=== PATIENT | male | born 1940 | race Caucasian/White ===

== ENCOUNTER → 2016-07-22 | Outpatient (REF) | payer MEDICARE ==
[~2016-07-22] MED LIST: ALPHAGAN; ASPI81CH PO; BRIN1OPH OU; CARV12.5; CARV12.5 PO; CARV6.25 PO; COMB0.2S OU; COUM1TAB17 PO; COUM2.5T17 PO; DIGO0.12 PO; FERR325T3 PO; FISH100049 PO; HUMA100I5 SUBQ; INSUDET SC; INSUHUMDS SC; IRON18TA2 PO; LIPI20TA PO; PARO40TA2 PO; PRED10TA2; PRED10TA2 PO; PROAAER10 INH; XALA0.007 OU
[2016-07-22 17:16] LABS: INR 2.47
[2016-07-22 17:21] LABS: BASO % 0.4 % (0.0-1.0); EOS # 0.1 K/mm3 (0.0-0.50); EOS % 0.6 % (0.0-3.0); LARGE UNSTAINED CELL # 0.2 K/mm3 (0.0-0.4); LARGE UNSTAINED CELL % 1.7 % (0.0-4.0); LYMPH # 0.7 K/mm3 (1.5-4.5); LYMPH % 7.9 % (24.0-44.0); MEAN CORPUSCULAR HEMOGLOBIN 31.3 pg (27.0-33.0); MEAN CORPUSCULAR HGB CONC 33.2 g/dl (32.0-36.5); MEAN CORPUSCULAR VOLUME 94.2 fl (80.0-96.0); MONO # 0.6 K/mm3 (0.0-0.8); MONO % 6.6 % (0.0-5.0); NEUTROPHILS # 7.3 K/mm3 (1.8-7.7); NEUTROPHILS % 82.7 % (36.0-66.0); PLATELET COUNT, AUTOMATED 182 k/mm3 (150-450); RED CELL DISTRIBUTION WIDTH 13.9 % (11.5-14.5); WHITE BLOOD COUNT 8.8 K/mm3 (4.0-10.0)
[2016-07-22 18:15] LABS: ANION GAP 7 MEQ/L (8-16); BLOOD UREA NITROGEN 21 MG/DL (7-18); CALCIUM LEVEL 8.4 MG/DL (8.8-10.2); CARBON DIOXIDE LEVEL 29 MEQ/L (21-32); CHLORIDE LEVEL 99 MEQ/L (98-107); CHOLESTEROL LEVEL 73 MG/DL (<200); CREATININE FOR GFR 1.35 MG/DL (0.70-1.30); GLOMERULAR FILTRATION RATE 54.7 (>42); GLUCOSE, FASTING 185 MG/DL (83-110); POTASSIUM SERUM 4.1 MEQ/L (3.5-5.1); SODIUM LEVEL 135 MEQ/L (136-145); TRIGLYCERIDES LEVEL 85 MG/DL (<150)
[2016-07-22 18:47] LABS: VITAMIN B12 LEVEL 271 PG/ML (247-911)
[2016-07-22 18:48] LABS: FOLATE > 24.0 NG/ML (>5.4)
== END ==
LOC: M SFHCCLAY 10:20
PROVIDERS: ATTEND Family Medicine
DX: D64.9 Anemia, unspecified (principal); E11.9 Type 2 diabetes mellitus without complications; I48.91 Unspecified atrial fibrillation; Z51.81 Encounter for therapeutic drug level monitoring; Z79.01 Long term (current) use of anticoagulants
CPT/HCPCS: 80048; 80061; 82607; 82746; 83036; 83540; 85025; 85610; G0463

== ENCOUNTER → 2016-08-02 | Outpatient (REF) | payer MEDICARE ==
[~2016-08-02] MED LIST changes: -CARV6.25 PO; +COUM2.5T11 PO; -COUM2.5T17 PO; +PRED10TA; +PRED10TA PO; -PRED10TA2; -PRED10TA2 PO; +PROA1AER INH; -PROAAER10 INH; +XALA0.002 OU; -XALA0.007 OU
[2016-08-02 18:33] LABS: INR 1.76
== END ==
LOC: M LABDRAWC 16:23
PROVIDERS: ATTEND Internal Medicine Cardiovascular Disease
DX: I48.0 Paroxysmal atrial fibrillation (principal)

== ENCOUNTER 2016-08-04 13:07 | Emergency (ER) | payer MEDICARE ==
[~2016-08-04] VITALS: Ht 180.3 cm; Wt 88.4 kg
[2016-08-04] MEDS ORDERED: LIPI20TA PO (13:36)
[2016-08-04] MEDS ORDERED: CARV12.5 (13:36)
[2016-08-04] MEDS ORDERED: COUM1TAB17 PO (13:36)
[2016-08-04] MEDS ORDERED: DIGO0.12 PO (13:36)
[2016-08-04] MEDS ORDERED: ALPHAGAN (13:36)
[2016-08-04] MEDS ORDERED: HUMA100I5 SUBQ (13:36)
[2016-08-04] MEDS ORDERED: PRED10TA2 (13:36)
[2016-08-04] MEDS ORDERED: COUM2.5T17 PO (13:36)
[2016-08-04] MEDS ORDERED: ASPI81CH PO (13:36)
[2016-08-04] MEDS ORDERED: PARO40TA2 PO (13:36)
[2016-08-04] MEDS ORDERED: XALA0.007 OU (13:36)
[2016-08-04] MEDS ORDERED: IRON18TA2 PO (13:37)
[2016-08-04 15:11] LABS: REASON FOR REVIEW COMPREHENSIVE REVIEW
[2016-08-04 15:13] LABS: LYMPH % 4.8 % (24.0-44.0); MEAN CORPUSCULAR HGB CONC 33.3 g/dl (32.0-36.5); MEAN CORPUSCULAR VOLUME 92.9 fl (80.0-96.0); NEUTROPHILS % 90.5 % (36.0-66.0); PLATELET COUNT, AUTOMATED 186 k/mm3 (150-450); RED CELL DISTRIBUTION WIDTH 14.7 % (11.5-14.5); WHITE BLOOD COUNT 13.3 K/mm3 (4.0-10.0)
[2016-08-04 15:14] LABS: INR 1.44; RETIC HEMOGLOBIN CONTENT CHr 34.2 PG (24-36); RETICULOCYTE ABSOLUTE ADVIA212 131 x10(9)/L (17-77)
[2016-08-04 15:15] LABS: BASO % 0.1 % (0.0-1.0); EOS % 0.1 % (0.0-3.0); LARGE UNSTAINED CELL # 0.1 K/mm3 (0.0-0.4); LARGE UNSTAINED CELL % 0.9 % (0.0-4.0); LYMPH # 0.6 K/mm3 (1.5-4.5); MONO # 0.5 K/mm3 (0.0-0.8); MONO % 3.7 % (0.0-5.0); NEUTROPHILS # 12.1 K/mm3 (1.8-7.7)
[2016-08-04 15:16] LABS: ADD MANUAL DIFFER NO; DIFF SLIDE NUMBER 227
--- NOTE | 2016-08-04 15:31 | REP ---
CT of the brain without IV contrast: There are no comparisons. There is no hemorrhage, edema, mass effect or midline shift. The cortical stripe is unremarkable. The ventricles and sulci are enlarged compatible with diffuse volume loss. Impression: There is no hemorrhage, acute infarct or mass. There is diffuse volume loss. Signed by Beto Carter MD 08/04/2016 03:22 P
--- NOTE | 2016-08-04 15:32 | REP ---
PA and lateral chest: Comparison is 08/26/2008. There is chronic mild cardiomegaly and sternotomy wires, unchanged. There is a stable tiny nodule in the right upper lobe, unchanged, likely a granuloma. There are no infiltrates or effusions. The fernanda, mediastinum, and bony thorax are unremarkable. Impression: There are chronic stable findings. There are no new or acute cardiopulmonary findings Signed by Beto Carter MD 08/04/2016 03:24 P
[2016-08-04 15:46] LABS: ALBUMIN 3.3 GM/DL (3.2-5.2); ALKALINE PHOSPHATASE 79 U/L (45-117); ALT/SGPT 39 U/L (12-78); ANION GAP 6 MEQ/L (8-16); AST/SGOT 23 U/L (15-37); BILIRUBIN,DIRECT 0.4 MG/DL (0.0-0.2); BILIRUBIN,TOTAL 1.9 MG/DL (0.2-1.0); BLOOD UREA NITROGEN 43 MG/DL (7-18); CALCIUM LEVEL 8.9 MG/DL (8.8-10.2); CARBON DIOXIDE LEVEL 30 MEQ/L (21-32); CHLORIDE LEVEL 97 MEQ/L (98-107); CREATININE FOR GFR 1.49 MG/DL (0.70-1.30); GLOMERULAR FILTRATION RATE 48.8 (>42); GLUCOSE, FASTING 195 MG/DL (83-110); MAGNESIUM LEVEL 2.2 MG/DL (1.8-2.4); POTASSIUM SERUM 4.3 MEQ/L (3.5-5.1); SODIUM LEVEL 133 MEQ/L (136-145); THYROXINE (T4) 7.3 UG/DL (4.5-12.0); TOTAL PROTEIN 6.6 GM/DL (6.4-8.2)
[2016-08-04 15:57] LABS: T UPTAKE 41 % (33-40)
[2016-08-04 16:25] VITALS: BP 173/81
--- NOTE | 2016-08-05 07:33 | ECGEPIP ---
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
[2016-08-05] MEDS ORDERED: CARV12.5 PO (15:05)
[2016-08-05] MEDS ORDERED: INSUHUMDS SC (15:08)
[2016-08-05] MEDS ORDERED: FERR325T3 PO (15:08)
[2016-08-05] MEDS ORDERED: PRED10TA2 PO (15:17)
[2016-08-05] MEDS ORDERED: FISH100049 PO (15:19)
[2016-08-05] MEDS ORDERED: INSUDET SC (15:23)
[2016-08-05] MEDS ORDERED: BRIN1OPH OU (15:23)
[2016-08-05] MEDS ORDERED: COMB0.2S OU (15:26)
[2016-08-05] MEDS ORDERED: PROAAER10 INH (15:30)
== END 2016-08-04 16:37 | disposition home or self-care (01) ==
LOC: M ED 15:47
DX: R42 Dizziness and giddiness (principal); I11.0 Hypertensive heart disease with heart failure; I48.91 Unspecified atrial fibrillation; E78.00 Pure hypercholesterolemia, unspecified; Z95.1 Presence of aortocoronary bypass graft; Z79.4 Long term (current) use of insulin; Z79.82 Long term (current) use of aspirin; Z79.01 Long term (current) use of anticoagulants; Z79.899 Other long term (current) drug therapy; Z86.79 Personal history of other diseases of the circulatory system

== ENCOUNTER 2016-08-05 12:38 | Observation (INO) | payer MEDICARE ==
[~2016-08-05] VITALS: Ht 185.4 cm; Wt 86.5 kg
[~2016-08-05 12:38] MED LIST changes: -BRIN1OPH OU; -CARV12.5 PO; -COMB0.2S OU; -COUM2.5T11 PO; +COUM2.5T17 PO; -FERR325T3 PO; -FISH100049 PO; -INSUDET SC; -INSUHUMDS SC; -PRED10TA; -PRED10TA PO; +PRED10TA2; -PROA1AER INH; -XALA0.002 OU; +XALA0.007 OU
[2016-08-05] MEDS ORDERED: NS 500 ML IV ONE (14:15)
[2016-08-05 14:25] LABS: IONIZED CALCIUM 4.8 MG/DL (4.5-5.3)
[2016-08-05 14:43] LABS: EOS % 0.3 % (0.0-3.0); LARGE UNSTAINED CELL # 0.1 K/mm3 (0.0-0.4); LARGE UNSTAINED CELL % 0.5 % (0.0-4.0); LYMPH # 0.5 K/mm3 (1.5-4.5); MEAN CORPUSCULAR HEMOGLOBIN 31.5 pg (27.0-33.0); MEAN CORPUSCULAR HGB CONC 33.9 g/dl (32.0-36.5); MEAN CORPUSCULAR VOLUME 92.8 fl (80.0-96.0); MONO # 0.3 K/mm3 (0.0-0.8); MONO % 2.7 % (0.0-5.0); NEUTROPHILS # 10.5 K/mm3 (1.8-7.7); NEUTROPHILS % 92.5 % (36.0-66.0); PLATELET COUNT, AUTOMATED 162 k/mm3 (150-450); WHITE BLOOD COUNT 11.3 K/mm3 (4.0-10.0)
[2016-08-05 14:47] LABS: INR 1.48
[2016-08-05 15:02] LABS: ANION GAP 7 MEQ/L (8-16); BLOOD UREA NITROGEN 46 MG/DL (7-18); CALCIUM LEVEL 9.2 MG/DL (8.8-10.2); CARBON DIOXIDE LEVEL 30 MEQ/L (21-32); CHLORIDE LEVEL 97 MEQ/L (98-107); CREATININE FOR GFR 1.49 MG/DL (0.70-1.30); DIGOXIN LEVEL 1.1 NG/ML (0.5-2.0); GLOMERULAR FILTRATION RATE 48.8 (>42); GLUCOSE, FASTING 228 MG/DL (83-110); MYOGLOBIN 70 NG/ML (16-116); PHOSPHORUS LEVEL 3.2 MG/DL (2.5-4.9); POTASSIUM SERUM 4.6 MEQ/L (3.5-5.1); SODIUM LEVEL 134 MEQ/L (136-145); T UPTAKE 38 % (33-40); THYROXINE (T4) 8.8 UG/DL (4.5-12.0)
[2016-08-05] MEDS ORDERED: CARV12.5 PO (15:05)
[2016-08-05] MEDS ORDERED: FERR325T3 PO (15:08)
[2016-08-05] MEDS ORDERED: INSUHUMDS SC (15:08)
[2016-08-05 15:14] LABS: ERYTHROCYTE SEDIMENTATION RATE 17 mm/hr (0-20)
[2016-08-05] MEDS ORDERED: PRED10TA2 PO (15:17)
[2016-08-05] MEDS ORDERED: FISH100049 PO (15:19)
[2016-08-05] MEDS ORDERED: INSUDET SC (15:23)
[2016-08-05] MEDS ORDERED: BRIN1OPH OU (15:23)
[2016-08-05] MEDS ORDERED: COMB0.2S OU (15:26)
[2016-08-05] MEDS ORDERED: PROAAER10 INH (15:30)
[2016-08-05] MEDS ORDERED: GLUCAGON FOR INJ 1 MG VIAL (J1610) SC PRN (18:00)
[2016-08-05] MEDS ORDERED: DEXTROSE 50% 50 ML SYRINGE IV PRN (18:00)
[2016-08-05] MEDS ORDERED: ALBUTEROL 90 MCG/ACT 8GM HFA INHALER INH PRN (18:00)
[2016-08-05] MEDS ORDERED: IPRATROPIUM 0.5MG/ALBUTEROL 2.5MG INH SOL UD 3ML (DUONEB)(J7620) NEB PRN (18:00)
[2016-08-05 20:42] VITALS: BP 190/81
[2016-08-05] MEDS: BRINZOLAMIDE 1 % OPHTH SUSP (AZOPT) 10ML OU SCH (21:55)
[2016-08-05] MEDS: LATANOPROST 0.005% OPHTH SOLN 2.5 ML OU SCH (21:55)
[2016-08-05] MEDS: HumaLOG INSULIN (NovoLOG) PER UNIT SC SCH (21:56)
[2016-08-05] MEDS: CARVedilol 12.5 MG TAB PO SCH (21:58)
[2016-08-05] MEDS: IPRATROPIUM 0.5MG/ALBUTEROL 2.5MG INH SOL UD 3ML (DUONEB)(J7620) NEB SCH (23:31)
[2016-08-05 23:59] VITALS: BP 170/79
[2016-08-06] VITALS (8 sets, daily range): BP systolic 66–157; BP diastolic 44–86
[2016-08-06] MEDS: IPRATROPIUM 0.5MG/ALBUTEROL 2.5MG INH SOL UD 3ML (DUONEB)(J7620) NEB SCH ×4 (01:45→19:38)
--- NOTE | 2016-08-06 05:26 | HPE ---
DATE OF ADMISSION: 08/05/2016 PRIMARY CARE PROVIDER: Hector Jimenez DO. CHIEF COMPLAINT: Fall, intermittent catatonic muscle weakness. HISTORY OF PRESENT ILLNESS: The patient is a 75-year-old male with the current history starting few months ago. He reports intermittent generalized weakness to the point of catatonia, loss of muscle tone, results to a fall usually from a standing position. Patient has sustained several traumas as a result including head trauma. After each fall, he is not able to get up right away, so has to spend 5-10 minutes before regaining some of his strength. Sometimes he is assisted up by family. He has been worked up without any significant findings. He states a month ago he had an unremarkable MRI and also had an echocardiogram within the year, which was normal as well. A day prior to this presentation, he experienced the symptoms again and fell. He had a discussion with Dr. Cannon, his mainframe developer, who persuaded him to come in and be evaluated again. He said the third time for the same issues. He is really concerned. In the emergency department (ED), his vital signs were positive for orthostasis significantly and patient reports forehead feeling fuzzy. He appears quite irritable. REVIEW OF SYSTEMS: 10-point systems were assessed and negative except listed above in history of present illness (HPI). PAST MEDICAL HISTORY: Includes: 1. Atrial fibrillation on Coumadin. 2. Coronary artery disease. 3. Diabetes, uncontrolled. 4. Hypertension. 5. Depression. 6. Abdominal aortic aneurysm (AAA). 7. Glaucoma. PAST SURGICAL HISTORY: Includes: 1. 3-vessel coronary artery bypass graft (CABG) 1989. 2. AAA repair in 1999. 3. Colonoscopy 2000. 4. Cataracts replacement 2013. FAMILY HISTORY: Father at age of 64 from liver failure. He was an alcoholic. Mother at 62 from liver failure, also alcoholism. He has siblings, one with diabetes and hypertension, a sister who from lung cancer. SOCIAL HISTORY: Patient is an ex-smoker. He quit in 1989. Prior to that, he smoked a pack and a half for 45 years. He is retired, worked at [employer] for 30 years and then [employer] for 20 years. He is and has three children. ALLERGIES TO MEDICATIONS: None listed. LIST OF HOME MEDICATIONS: - atorvastatin 20 mg at nighttime - fish oil one capsule daily - insulin lispro sliding scale - warfarin 2.5 mg by mouth four times a week and then 5 mg three times a week - Combigan eye drop one drop to both eyes twice a day - albuterol - baby aspirin - brinzolamide 200 of 100 mL solution one drop to both eyes three times a day - carvedilol 12.5 mg by mouth twice a day - digoxin 0.125 mg daily - iron sulfate 325 mg by mouth daily - Levemir insulin 20 units once a day - Xalatan 0.005% solution eye drop at night - paroxetine 40 mg once a day - prednisone 10 mg by mouth taper PHYSICAL EXAMINATION: VITAL SIGNS: Blood pressure 144/63, pulse 74, respiratory rate 16, oxygen saturation 95% on room air, temperature 98.6 degrees Fahrenheit. GENERAL: He is alert, oriented to person, place, time and circumstance in no distress. HEENT: Pupils are equal, round and reactive to light. Extraocular muscles are intact. Anicteric sclerae. Mucous membranes are moist. CARDIOVASCULAR SYSTEM: S1, S2 present. Rate is irregular. RESPIRATORY SYSTEM: Lungs are clear to auscultation bilaterally. GASTROINTESTINAL: Abdomen is soft, nontender, nondistended. Bowel sounds are normal. No guarding or rebound. MUSCULOSKELETAL SYSTEM: No edema, cyanosis or calf tenderness. SKIN: Warm, dry, acyanotic without rash. NEUROLOGY: Nonfocal findings. LABORATORIES: Hematology: White blood cell count 11, hemoglobin 12, hematocrit 35, platelets 162. Coagulation: INR 1.48. Chemistry: Sodium 134, potassium 4.6, chloride 97, bicarbonate 30, anion gap 7, BUN 46, creatinine 1.5, fasting glucose 228, lactic acid 2.0, calcium 9.2, phosphorus 3.2. CK 27. Cardiac enzymes normal. TSH normal. Thyroid function tests normal. C-reactive protein normal. Toxicology: Digoxin 1.1. Immunology: Acetylcholine receptor weston antibody is pending. Fingerstick 385. IMAGING STUDIES: CT scan of the head unremarkable. Chest x-ray also no acute cardiopulmonary disease. EKG atrial fibrillation at 67 beats per minute. IMPRESSION: Includes: 1. Orthostatic hypotension. 2. Near syncope. 3. Generalized weakness, suspected myasthenia gravis. 4. History of hypertension. Blood pressure controlled. 5. History of diabetes, uncontrolled. 6. History of depression, stable. 7. History of atrial fibrillation on Coumadin. Heart rate is stable. 8. History of coronary artery disease (CAD), stable. PLAN: Patient is admitted to progressive care unit (PCU). Will be monitored closely on telemetry. Resumed his necessary home medications. Consulted his mainframe developer, Dr. Cannon and neurology, Dr. Smith. They will be seeing him tomorrow. Deep venous thrombosis (DVT) prophylaxis: Will continue patient's Coumadin; however, will be bridging with Lovenox.
--- NOTE | 2016-08-06 07:22 | ECGEPIP ---
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
[2016-08-06] MEDS: HumaLOG INSULIN (NovoLOG) PER UNIT SC SCH ×4 (07:30→21:00)
[2016-08-06] MEDS: PARoxetine 20 MG TAB PO SCH (08:32)
[2016-08-06] MEDS: ASPIRIN 81 MG CHEW TABLET PO SCH (08:32)
[2016-08-06] MEDS: FERROUS SULFATE 325MG TAB PO SCH (08:32)
[2016-08-06] MEDS: DIGOXIN 0.125 MG TAB PO SCH (08:32)
[2016-08-06] MEDS: predniSONE 10 MG TAB PO SCH (08:32)
[2016-08-06] MEDS: BRINZOLAMIDE 1 % OPHTH SUSP (AZOPT) 10ML OU SCH ×3 (08:33→21:14)
[2016-08-06] MEDS: CARVedilol 12.5 MG TAB PO SCH (08:33)
[2016-08-06] MEDS: ENOXAPARIN 40 MG/0.4 ML SYRINGE (J1650) SC SCH (08:33)
[2016-08-06 08:47] LABS: BASO % 0.2 % (0.0-1.0); EOS # 0.1 K/mm3 (0.0-0.50); EOS % 0.7 % (0.0-3.0); LARGE UNSTAINED CELL # 0.1 K/mm3 (0.0-0.4); LYMPH # 1.4 K/mm3 (1.5-4.5); LYMPH % 14.1 % (24.0-44.0); MEAN CORPUSCULAR HEMOGLOBIN 31.2 pg (27.0-33.0); MEAN CORPUSCULAR HGB CONC 33.7 g/dl (32.0-36.5); MEAN CORPUSCULAR VOLUME 92.5 fl (80.0-96.0); MONO # 0.6 K/mm3 (0.0-0.8); MONO % 6.4 % (0.0-5.0); NEUTROPHILS # 7.1 K/mm3 (1.8-7.7); NEUTROPHILS % 77.6 % (36.0-66.0); PLATELET COUNT, AUTOMATED 142 k/mm3 (150-450); RED CELL DISTRIBUTION WIDTH 15.1 % (11.5-14.5); WHITE BLOOD COUNT 9.2 K/mm3 (4.0-10.0)
[2016-08-06 08:55] LABS: INR 1.57
[2016-08-06] MEDS ORDERED: LEVEMIR (INSULIN DETEMIR) 1 UNITS/0.01ML SC SCH (09:00)
[2016-08-06 09:22] LABS: ALBUMIN 3.2 GM/DL (3.2-5.2); ALBUMIN/GLOBULIN RATIO 1.03 (1.00-1.93); BILIRUBIN,TOTAL 1.8 MG/DL (0.2-1.0); CALCIUM LEVEL 8.6 MG/DL (8.8-10.2); CREATININE FOR GFR 1.3 MG/DL (0.70-1.30); GLOMERULAR FILTRATION RATE 57.1 (>42); MAGNESIUM LEVEL 2.2 MG/DL (1.8-2.4); POTASSIUM SERUM 4.6 MEQ/L (3.5-5.1); TOTAL PROTEIN 6.3 GM/DL (6.4-8.2)
[2016-08-06] MEDS ORDERED: MAG SULF 1GM/100ML (MAG RUN) 1 GM in APPROPRIATE DILUENT 1 EA IV ONE (10:15)
--- NOTE | 2016-08-06 10:28 | IPNPDOC ---
Text Note Date of Service The patient was seen on 08/06/16. NOTE Subjective: Pt feels much improved. States he has dizziness when walking/ standing. No CP/SOB/palpitations. No weakness. Objective: Vitals: (see below) General: No acute distress, laying comfortably in bed. HEENT: Moist mucous membranes. Neck: No JVD or lymphadenopathy Cardiac: RRR, No murmurs Pulm: Coarse crackles b/l bases. No wheezing, rhonchi Abd: NT/ND + BS Ext: No edema or cyanosis Neuro: Strength 5/5 BUE and BLE. CN 2-12 intact. Labs (see below) Images: CT Head 08/04/16 Negative for acute pathology. Assessment/Plan 1. Dizziness - likely 2/2 orthostatic hypotension. Pt states he has been hydrated, however had pre-renal azotemia, which has improved. TSH wnl. Will also check morning cortisol. Knee compression stockings. Echocardiogram. Cardio/ neuro had been consulted on admission. MRI brain/MRA Head. 2. Atrial fibrillation on Coumadin. Subtherapeutic. Cont Coumadin 5mg daily. 3. Coronary artery disease s/p CABG - cont home meds 4. Diabetes - cont levemir, SSI. 5. Hypertension - controlled. cont home meds 6. Depression. 7. H/o Abdominal aortic aneurysm (AAA) s/p repair. 8. Glaucoma. DVT prophy: Warfarin VS,Fishbone, I+O VS, Fishbone, I+O Laboratory Tests 08/05/16 14:05 Red Blood Count 3.72 L, Mean Corpuscular Volume 92.8, Mean Corpuscular Hemoglobin 31.5, Mean Corpuscular Hemoglobin Concent 33.9, Red Cell Distribution Width 15.0 H, Neutrophils (%) (Auto) 92.5 H, Lymphocytes (%) (Auto ) 4.0 L, Monocytes (%) (Auto) 2.7, Eosinophils (%) (Auto) 0.3, Basophils (%) ( Auto) 0.0, Neutrophils # (Auto) 10.5 H, Lymphocytes # (Auto) 0.5 L, Monocytes # (Auto) 0.3, Eosinophils # (Auto) 0.0, Basophils # (Auto) 0.0, Calcium Level 9.2 , Phosphorus Level 3.2, Total Creatine Kinase 27 L 08/06/16 08:37 Red Blood Count 3.60 L, Mean Corpuscular Volume 92.5, Mean Corpuscular Hemoglobin 31.2, Mean Corpuscular Hemoglobin Concent 33.7, Red Cell Distribution Width 15.1 H, Neutrophils (%) (Auto) 77.6 H, Lymphocytes (%) (Auto ) 14.1 L, Monocytes (%) (Auto) 6.4 H, Eosinophils (%) (Auto) 0.7, Basophils (%) (Auto) 0.2, Neutrophils # (Auto) 7.1, Lymphocytes # (Auto) 1.4 L, Monocytes # ( Auto) 0.6, Eosinophils # (Auto) 0.1, Basophils # (Auto) 0.0, Calcium Level 8.6 L , Aspartate Amino Transf (AST/SGOT) 16, Alanine Aminotransferase (ALT/SGPT) 32, Alkaline Phosphatase 63, Total Bilirubin 1.8 H, Total Protein 6.3 L, Albumin 3.2 Vital Signs Date Time Temp Pulse Resp B/P (MAP) Pulse Ox O2 Delivery O2 Flow Rate FiO2 08/06/16 08:33 83 137/86 08/06/16 08:00 98.3 18 96 Room Air I&O- Last 24 Hours up to 6 AM 08/06/16 06:00 Intake Total 860 ml Output Total 1200 ml Balance -340 ml BOGDAN LOPEZ MD Aug 06, 2016 10:28
--- NOTE | 2016-08-06 12:41 | CR ---
DATE OF CONSULTATION: 08/06/2016 INDICATION: Dizziness, near syncope. REFERRING PHYSICIAN: Dr. Galdamez HISTORY OF PRESENT ILLNESS: Mr. Knight is previously unknown to me, but he has been followed by my partner, Dr. Cannon. He is a pleasant 75-year-old man who has had longstanding history of atrial fibrillation and remote history of coronary artery bypass grafting. He was in his usual state of health until probably about 4-6 weeks ago when he started to experience episodes of near syncope. All of them occurred when he is in upright position. He would get very dizzy. He feels that his knees are "locking up," he loses postural tone and falls to the ground. According to his description, he never fully loses consciousness. When he is on the ground, he feels weak and it takes him a few minutes before he can actually get up. These episodes occur rather erratically. There is no way of predicting when the symptoms may occur. He apparently was initially hospitalized in [facility] in [place] and had fairly extensive evaluation. Supposedly no solution though was found and he was discharged home and virtually immediately started having trouble again. He knows that he had a lot of tests done, but does not recall what exactly and he does not recall any diagnosis. He , since that time, was seen by "a myriad of doctors" and everybody was initially optimistic but then could not explain his symptoms, neither make the diagnosis and especially could not provide any treatment. By now, he is very frustrated. Eventually, he called Dr. Cannon, and he advised him to come to our facility. He has been admitted to the progressive care unit (PCU), initially somewhat hydrated but he tells me that his symptoms are ongoing. Orthostatic vital signs obtained just a few minutes ago reveal supine blood pressure 118/58, sitting blood pressure 92/53 and standing 66/44, certainly indicating very profound orthostatic drop. The patient denies that there would be any unusual events since he started having symptoms, but he does admit that he lost over 20 pounds over the last month or two. He denies having any gastrointestinal symptoms and reports that he has been eating well and his appetite did not diminish at all. PAST MEDICAL HISTORY: 1. Coronary artery disease with coronary artery bypass graft (CABG) in 1989. 2. Chronic atrial fibrillation. 3. History of abdominal aortic aneurysm. 4. Type 2 diabetes. 5. Depression. 6. Glaucoma. 7. Hypertension. SURGICAL HISTORY: Positive for CABG in 1989, abdominal aortic aneurysm repair in 1999, colonoscopies and cataracts. FAMILY HISTORY: Both of his parents of liver failure due to alcoholism. He has a sister who of lung cancer. SOCIAL HISTORY: The patient is , lives with his currently in a cottage in the [address] [place] [address]. He quit smoking in 1989. He retired from [employer]. No medication allergies. HOME MEDICATIONS: Lipitor 20 mg at night, fish oil, insulin, lispro sliding scale, warfarin, Combigan, aspirin 81 mg a day, brinzolamide eye drops, Coreg 12.5 twice a day, digoxin 0.125 mg a day, iron sulfate 325 mg a day, Levemir, paroxetine 40 mg a day and prednisone taper, currently on 10 mg. REVIEW OF SYSTEMS: He denies any history of stroke. He denies any recent fever , chills, nausea, vomiting or diarrhea. He denies chest pain. He denies david syncope. Denies palpitations. He denies shortness of breath. He denies any bleeding problems. No peripheral edema. The rest of the review of systems is per history of the present illness or otherwise negative. LABORATORY DATA: On admission, his hemoglobin was 11.7 with hematocrit 34 and today is 11.2, hematocrit 33, WBC count 9.2 and platelet count 142,000. Basic metabolic panel on admission reveals sodium 134, potassium 4.6, BUN 46, creatinine 1.49 for a GFR of 49 and glucose 228. He had normal calcium and phosphorus, normal cardiac enzymes. CRP was less than 0.3. TSH was 0.9 with normal free T4 index and T3 uptake. Albumin was 3.2. Digoxin level was 1.1 and INR is currently 1.6. ECG revealed atrial fibrillation with ventricular rate 67 beats per minute and is otherwise relatively unremarkable. Chest x-ray reveals presence of prior open heart surgery. There is a right upper lobe nodule unchanged from prior but no evidence for congestive heart failure or pleural effusions or cardiomegaly. He also had a head CT that was unremarkable other than diffuse volume loss potentially related to his age. ASSESSMENT AND PLAN: Mr. Knight is a 75-year-old man who reports approximately a 4-6 week history of illness that constitutes episodes of severe weakness, likely related to orthostatic hypotension. There was concomitant substantial weight loss according to the patient, even though he does deny loss of appetite or any gastrointestinal (GI) symptoms to explain malabsorption. I tried to talk to him about etiology of orthostatic hypotension, but he is clearly depressed and appears mostly frustrated with our inability to help him. At this point, I think it is reasonable to obtain an echocardiogram if not done recently. I am going to cut down on the dose of carvedilol because his heart rate is sometimes relatively bradycardic. I am also going to liberate sodium in his diet and utilize elastic stockings. If this should not be beneficial, we may need to introduce medications to help him raise blood pressure, either mineralocorticoids or even vasoconstricting agents. Simultaneously, he will have neurologic evaluation - that is pending. I do suspect that he has likely peripheral neuropathy, but we want to make sure he does not have some neurodegenerative condition. Cortisol level was drawn, but he is on prednisone which will likely murky the evaluation. Considering the substantial weight loss, we should also consider a possibility of underlying malignancy. At this point, I do not see any localizing signs, though. I will follow the patient with you. LORRI
--- NOTE | 2016-08-06 13:18 | REP ---
Clinical: Dizziness. Technique: Standard noncontrast MRI of the brain sequencing. Findings: High signal intensity foci on T2 and FLAIR weighted sequences along with mild periventricular high signal intensity is compatible with age-related microvascular ischemic changes. There is no evidence for acute intracranial hemorrhage, infarction, mass or mass effect. No extra-axial collection identified. Diffusion and ADC mapping sequences are normal and without acute infarction. Midbrain and midline structures are intact. Impression: Age-related microvascular ischemic changes. No acute intracranial pathology appreciated. Signed by Marciano Barker MD 08/06/2016 01:10 P
--- NOTE | 2016-08-06 13:25 | REP ---
Clinical: Dizziness. Technique: 3-D [id number] noncontrast axial source imaging with multiplanar MIP re-formations. Findings: Vertebrobasilar system demonstrates left vertebral artery dominance. Moderate atherosclerotic changes to the clinoid portion of internal carotid arteries. [place] of [place] is intact. Vasculature to the bilateral hemispheres appears symmetric and relatively normal. No arteriovenous malformation or aneurysm identified. Impression: Atherosclerotic changes of the internal carotid arteries. Signed by Marciano Barker MD 08/06/2016 01:17 P
[2016-08-06] MEDS ORDERED: WARFARIN SOD 5 MG TAB PO SCH (17:00)
[2016-08-06] MEDS: CARVedilol 6.25 MG TAB PO SCH (21:00)
[2016-08-06] MEDS: LEVEMIR (INSULIN DETEMIR) 1 UNITS/0.01ML SC SCH (21:14)
[2016-08-06] MEDS: LATANOPROST 0.005% OPHTH SOLN 2.5 ML OU SCH (21:14)
[2016-08-07] MEDS: IPRATROPIUM 0.5MG/ALBUTEROL 2.5MG INH SOL UD 3ML (DUONEB)(J7620) NEB SCH ×4 (02:00→20:08)
[2016-08-07 04:00] VITALS: BP 131/74
[2016-08-07 05:52] LABS: INR 1.58
[2016-08-07 06:29] LABS: ALBUMIN 2.8 GM/DL (3.2-5.2); ALBUMIN/GLOBULIN RATIO 0.93 (1.00-1.93); CALCIUM LEVEL 8.1 MG/DL (8.8-10.2); CREATININE FOR GFR 1.43 MG/DL (0.70-1.30); GLOMERULAR FILTRATION RATE 51.2 (>42); POTASSIUM SERUM 3.9 MEQ/L (3.5-5.1); TOTAL PROTEIN 5.8 GM/DL (6.4-8.2)
[2016-08-07] MEDS: HumaLOG INSULIN (NovoLOG) PER UNIT SC SCH ×4 (07:57→20:54)
[2016-08-07] MEDS: PARoxetine 20 MG TAB PO SCH (07:58)
[2016-08-07] MEDS: DIGOXIN 0.125 MG TAB PO SCH (07:58)
[2016-08-07] MEDS: FERROUS SULFATE 325MG TAB PO SCH (07:58)
[2016-08-07] MEDS: BRINZOLAMIDE 1 % OPHTH SUSP (AZOPT) 10ML OU SCH ×3 (07:58→20:53)
[2016-08-07] MEDS: ENOXAPARIN 40 MG/0.4 ML SYRINGE (J1650) SC SCH (07:58)
[2016-08-07] MEDS: predniSONE 10 MG TAB PO SCH (07:59)
[2016-08-07 08:00] VITALS: BP_SYST 142; BP_SYST 189; BP_DIAS 64; BP_DIAS 73; BP_DIAS 88
[2016-08-07] MEDS: CARVedilol 6.25 MG TAB PO SCH ×2 (08:02→20:55)
--- NOTE | 2016-08-07 08:06 | IPNPDOC ---
Text Note Date of Service The patient was seen on 08/07/16. NOTE Subjective: Pt states he walked around this morning and he did not have dizziness/lightheadedness. No CP/SOB/palpitations. No weakness. Objective: Vitals: (see below) General: No acute distress, laying comfortably in bed. HEENT: Moist mucous membranes. Neck: No JVD or lymphadenopathy Cardiac: RRR, No murmurs Pulm: Coarse crackles b/l bases. No wheezing, rhonchi Abd: NT/ND + BS Ext: No edema or cyanosis Neuro: Strength 5/5 BUE and BLE. CN 2-12 intact. Labs (see below) Images: CT Head 08/04/16 Negative for acute pathology. Assessment/Plan 1. Dizziness - likely 2/2 orthostatic hypotension. Pt states he has been hydrated, however had pre-renal azotemia, which has improved. TSH wnl. Will also check morning cortisol, although patient was ready on prednisone. Knee compression stockings. Echocardiogram pending. Cardio/neuro had been consulted on admission. MRI brain/MRA Head negative. Will likely need midodrine or fludrocortisone. 2. Atrial fibrillation on Coumadin. Subtherapeutic. Increase Coumadin to 7.5mg. 3. 3 beats NSVT -asymptomatic. Echo pending. Will keep K>4,Mg>2. On coreg. 3. Coronary artery disease s/p CABG - cont home meds 4. Diabetes - cont levemir, SSI. 5. Hypertension - controlled. cont home meds 6. Depression. 7. H/o Abdominal aortic aneurysm (AAA) s/p repair. 8. Glaucoma. DVT prophy: Warfarin VS,Fishbone, I+O VS, Fishbone, I+O Laboratory Tests 08/06/16 08:37 Red Blood Count 3.60 L, Mean Corpuscular Volume 92.5, Mean Corpuscular Hemoglobin 31.2, Mean Corpuscular Hemoglobin Concent 33.7, Red Cell Distribution Width 15.1 H, Neutrophils (%) (Auto) 77.6 H, Lymphocytes (%) (Auto ) 14.1 L, Monocytes (%) (Auto) 6.4 H, Eosinophils (%) (Auto) 0.7, Basophils (%) (Auto) 0.2, Neutrophils # (Auto) 7.1, Lymphocytes # (Auto) 1.4 L, Monocytes # ( Auto) 0.6, Eosinophils # (Auto) 0.1, Basophils # (Auto) 0.0, Calcium Level 8.6 L , Aspartate Amino Transf (AST/SGOT) 16, Alanine Aminotransferase (ALT/SGPT) 32, Alkaline Phosphatase 63, Total Bilirubin 1.8 H, Total Protein 6.3 L, Albumin 3.2 08/07/16 04:59 Calcium Level 8.1 L, Aspartate Amino Transf (AST/SGOT) 15, Alanine Aminotransferase (ALT/SGPT) 33, Alkaline Phosphatase 60, Total Bilirubin 1.0, Total Protein 5.8 L, Albumin 2.8 L Vital Signs Date Time Temp Pulse Resp B/P (MAP) Pulse Ox O2 Delivery O2 Flow Rate FiO2 08/07/16 04:00 96.5 60 18 131/74 (93) 96 Room Air I&O- Last 24 Hours up to 6 AM 08/07/16 06:00 Intake Total 900 ml Output Total 1600 ml Balance -700 ml BOGDAN LOPEZ MD Aug 07, 2016 08:06
[2016-08-07] MEDS ORDERED: POTASSIUM CHLORIDE 10 MEQ SR TABLET PO ONE (09:30)
[2016-08-07 09:35] LABS: MAGNESIUM LEVEL 2.2 MG/DL (1.8-2.4)
--- NOTE | 2016-08-07 10:05 | REP ---
Clinical: Chest pain and congestion . Comparison: 08/04/2016 . Findings: The mediastinum and cardiac silhouette are stable and within normal limits for portable technique. Sternotomy and CABG. The lung rodríguez are clear without acute consolidation, effusion, or pneumothorax. Skeletal structures are intact. Impression: No acute cardiopulmonary process appreciated. Signed by Marciano Barker MD 08/07/2016 09:57 A
--- NOTE | 2016-08-07 11:22 | CR ---
DATE OF CONSULTATION: REFERRING PHYSICIAN: Dr. Gissel Ya REASON FOR CONSULTATION: Falls. HISTORY OF PRESENT ILLNESS: Shaquille Knight is a 75-year-old man who was at his baseline state of health until 3 weeks ago when he started falling down. He has fallen 2 or 3 times. He states that he stood up and his knees buckled and he lost strength in his legs and fell down. He felt dizzy and lightheadedness before he fell down. There was no loss of consciousness. He tried to compose himself while he was laying down and then was able to stand up after 5-10 minutes. He denies any problem with his vision. He denies any loss of consciousness, shaking, urinary incontinence or tongue biting. He denies any headaches, neck or back pain. He denies any numbness, weakness in his legs except when he fell down. He does not use a cane or walker. He denies any problem with his gait in past. He denies any injuries of illness in the past. At the hospital he was found to have significant orthostasis. His blood pressure laying was 118/58, sitting 92/53 and standing 66/44. His pulse laying was 73, sitting 86, and standing 88. PAST MEDICAL HISTORY: Atrial fibrillation, diabetes for 10 years, coronary artery disease, hypertension, depression, abdominal aortic aneurysm, coronary artery bypass graft, glaucoma abdominal aortic aneurysm repair, colonoscopy, cataract surgery. FAMILY HISTORY: Father of liver failure. He was an alcoholic. Mother also had alcoholism and of liver failure. One sister had lung cancer. SOCIAL HISTORY: He is a former smoker. He quit in 1989. He denies alcohol or illicit drugs. ALLERGIES: None. HOME MEDICATIONS: - Lipitor 20 mg by mouth daily - fish oil one capsule by mouth daily - Insulin Lispro sliding scale - warfarin 2.5 mg alternating with 5 mg by mouth daily - aspirin 81 mg by mouth daily - Coreg 12.5 mg by mouth twice a day - digoxin 0.125 mg by mouth daily - insulin Levemir 20 units subcutaneous daily - Paxil 40 mg by mouth daily - prednisone 10 mg by mouth daily with tapering doses PHYSICAL EXAMINATION: Temperature 98.3, pulse 18. His orthostatic hypotension including his blood pressure and pulse. Heart: Irregularly irregular. Lungs: Clear to auscultation. No pedal edema. No gross musculoskeletal abnormalities. Ears, nose, and throat examination is within normal limits. He has decreased peripheral pulses in his feet. He is awake, alert, oriented to place, person and time. Normal speech comprehension and repetition. His distant and recent memory is intact. There is no tremor. No dysmetria. No facial weakness. Tongue and uvula are midline. Extraocular muscles are intact. 5/5 strength in all four extremities. Deep tendon flexes are 1+ in arms and knees and absent at ankles. He has decreased cold pinprick vibration sensation in his feet. Plantars are downgoing. His gait is normal. DIAGNOSTIC STUDIES: His MRI and MRA of brain showed mild small-vessel ischemic disease of brain without any acute disease. ASSESSMENT: 1. Falls related to dizziness induced by orthostatic hypotension. 2. Small vessel ischemic disease of brain. 3. 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 4. Rule out bradycardia and heart block. PLAN: 1. Continue telemetry monitoring. 2. His carvedilol should be adjusted which will at the discretion of his vehicle cost engineer. 3. Increasing salt intake, stockings use, Midodrine and fludrocortisone use per his vehicle cost engineer. 4. He should use a cane for ambulation as needed. 5. Continue telemetry monitoring.
[2016-08-07 12:00] VITALS: BP 126/77
--- NOTE | 2016-08-07 15:19 | IPN ---
DATE: 08/07/2016 Mr. Knight is feeling a little bit better today. He also appears to be in a much better mood. I met him when he was ambulating on progressive care unit (PCU) and he did not seem to have any obvious problems doing so. His orthostatic blood pressure measurement this morning was again positive. His systolic blood pressure dropped over 40 points from supine to standing position, but the initial systolic blood pressure was documented at 190, which I am a little skeptical of as the blood pressure was measured shortly thereafter and it was only 132 systolic. And he has been pretty much normotensive throughout the day. He has no specific complaints today. VITAL SIGNS: Blood pressure 132/80, heart rate 84, afebrile. Saturation 96% on room air. Fluid balance yesterday was documented at about 1.5 liters negative. Weight 87.1 kg. Review of telemetry monitoring reveals principally rate-controlled atrial fibrillation with occasional episodes of bradycardia. He is alert and oriented appropriate. His jugular venous pressure is not up. Lungs are clear. Heart exam reveals irregular rate and irregular rhythm. There is a faint murmur at the base. No gallop. No rub. Abdomen is soft, nontender. No peripheral edema. Neurologically, he is intact. LABORATORY: CBC: Hemoglobin 11.2, hematocrit 33 and platelet count 142,000. Basic metabolic panel: Potassium 3.9, BUN 35, creatinine 1.4 and a GFR 51, glucose 265. His cortisol level is still pending. ASSESSMENT AND PLAN: Mr. Knight is a 75-year-old man who has history of chronic atrial fibrillation and remote history of coronary artery bypass grafting. He presents with episodes of weakness and falls without reported loss of consciousness. He was demonstrated to have rather profound orthostatic hypotension. It is likely that it is the underlying mechanism. He has had a longstanding history of diabetes , which likely contributes. He also lost over 20 pounds of weight over the last couple months, which is probably a player as well. I encouraged the patient to adequately hydrate himself. He has been using elastic stockings and we cut down the dose of Coreg. So far, he seems to be responding favorably. I am not going to make any changes today and if he continues to feel well, I think he can be discharged home tomorrow. He will need outpatient followup. If further episodes occur, maybe even potentially the dose of Coreg can be reduced more depending on his heart rate. MTDD
[2016-08-07 16:00] VITALS: BP 132/70
[2016-08-07] MEDS ORDERED: WARFARIN SOD 7.5 MG TAB PO ONE (17:00)
[2016-08-07 19:57] VITALS: BP_SYST 109; BP_SYST 116; BP_SYST 125; BP_DIAS 59; BP_DIAS 61; BP_DIAS 67
[2016-08-07] MEDS: LATANOPROST 0.005% OPHTH SOLN 2.5 ML OU SCH (20:53)
[2016-08-07] MEDS: LEVEMIR (INSULIN DETEMIR) 1 UNITS/0.01ML SC SCH (20:54)
[2016-08-07 23:40] VITALS: BP 149/74
[2016-08-08] MEDS: CARVedilol 6.25 MG TAB PO SCH ×2 (00:31→08:10)
[2016-08-08] MEDS: IPRATROPIUM 0.5MG/ALBUTEROL 2.5MG INH SOL UD 3ML (DUONEB)(J7620) NEB SCH ×2 (01:46→08:35)
[2016-08-08 04:11] VITALS: BP 135/75
[2016-08-08 05:28] LABS: INR 1.78
[2016-08-08 05:38] LABS: ALBUMIN 2.8 GM/DL (3.2-5.2); ALBUMIN/GLOBULIN RATIO 0.85 (1.00-1.93); CALCIUM LEVEL 8.5 MG/DL (8.8-10.2); CREATININE FOR GFR 1.28 MG/DL (0.70-1.30); GLOMERULAR FILTRATION RATE 58.2 (>42); POTASSIUM SERUM 3.9 MEQ/L (3.5-5.1); TOTAL PROTEIN 6.1 GM/DL (6.4-8.2)
[2016-08-08 08:05] VITALS: BP 130/58
[2016-08-08] MEDS: ENOXAPARIN 40 MG/0.4 ML SYRINGE (J1650) SC SCH (08:08)
[2016-08-08] MEDS: HumaLOG INSULIN (NovoLOG) PER UNIT SC SCH ×2 (08:08→12:00)
[2016-08-08] MEDS: predniSONE 10 MG TAB PO SCH (08:09)
[2016-08-08] MEDS: DIGOXIN 0.125 MG TAB PO SCH (08:09)
[2016-08-08] MEDS: FERROUS SULFATE 325MG TAB PO SCH (08:09)
[2016-08-08] MEDS: PARoxetine 20 MG TAB PO SCH (08:09)
[2016-08-08 08:10] VITALS: BP 150/70
--- NOTE | 2016-08-08 08:10 | IPNPDOC ---
Text Note Date of Service The patient was seen on 08/08/16. NOTE Subjective: Pt states he walked around this morning and he did not have dizziness/lightheadedness. No CP/SOB/palpitations. No weakness. Objective: Vitals: (see below) General: No acute distress, laying comfortably in bed. HEENT: Moist mucous membranes. Neck: No JVD or lymphadenopathy Cardiac: RRR, No murmurs Pulm: Coarse crackles b/l bases. No wheezing, rhonchi Abd: NT/ND + BS Ext: No edema or cyanosis Neuro: Strength 5/5 BUE and BLE. CN 2-12 intact. Labs (see below) Images: CT Head 08/04/16 Negative for acute pathology. Assessment/Plan 1. Dizziness - likely 2/2 orthostatic hypotension. Orthostatic vitals are improving. Pre-renal azotemia on admission improving. TSH wnl. Cortisol level pending, although patient was ready on prednisone. Knee compression stockings. Echocardiogram pending. Cardio/neuro had been consulted on admission. MRI brain/ MRA Head negative. May need midodrine or fludrocortisone. 2. Atrial fibrillation on Coumadin. Subtherapeutic, but improving. Cont Coumadin to 7.5mg. 3. 3 beats NSVT -asymptomatic. Echo pending. Will keep K>4,Mg>2. On coreg, with dose decreased by cardio. K replaced. 3. Coronary artery disease s/p CABG - cont home meds 4. Diabetes - cont levemir, SSI. 5. Hypertension - controlled. cont home meds 6. Depression. 7. H/o Abdominal aortic aneurysm (AAA) s/p repair. 8. Glaucoma. DVT prophy: Warfarin VS,Fishbone, I+O VS, Fishbone, I+O Laboratory Tests 08/08/16 04:44 Calcium Level 8.5 L, Aspartate Amino Transf (AST/SGOT) 17, Alanine Aminotransferase (ALT/SGPT) 33, Alkaline Phosphatase 58, Total Bilirubin 1.0, Total Protein 6.1 L, Albumin 2.8 L Vital Signs Date Time Temp Pulse Resp B/P (MAP) Pulse Ox O2 Delivery O2 Flow Rate FiO2 08/08/16 04:11 98.6 76 18 135/75 (95) 96 Room Air I&O- Last 24 Hours up to 6 AM 08/08/16 06:00 Intake Total 960 ml Output Total 1375 ml Balance -415 ml BOGDAN LOPEZ MD Aug 08, 2016 08:10
[2016-08-08] MEDS: ASPIRIN 81 MG CHEW TABLET PO SCH (08:13)
[2016-08-08] MEDS: BRINZOLAMIDE 1 % OPHTH SUSP (AZOPT) 10ML OU SCH (08:14)
[2016-08-08 08:35] VITALS: O2SAT 97
[2016-08-08] MEDS ORDERED: POTASSIUM CHLORIDE 10 MEQ SR TABLET PO ONE (09:00)
[2016-08-08 09:40] LABS: CORTISOL AM 2.2 UG/DL (4.3-22.4)
[2016-08-08] MEDS ORDERED: CARV6.25 PO (11:04)
[2016-08-08] MEDS ORDERED: COUM1TAB17 PO (11:04)
--- NOTE | 2016-08-08 12:36 | DS.PDOC ---
Discharge Summary General Date of Admission Aug 05, 2016 at 17:46 Date of Discharge 08/08/16 Attending Physician: BOGDAN LOPEZ MD Specialist/Consultants Involve: Rafia Bowen MD Discharge Summary PROCEDURES PERFORMED DURING STAY: None. ADMITTING/DISCHARGE DIAGNOSES: 1. Orthostatic hypotension 2. AF on coumadin 3. NSVT 4. CAD s/p CABG 5. DM 6. HTN 7. Depression 8. H/o AAA s/p repair 9. Glaucoma COMPLICATIONS/CHIEF COMPLAINT: Orthostatis,Weakness. HISTORY OF PRESENT ILLNESS/HOSPITAL COURSE: This is an 5-year-old male past she of CAD, hypertension, diabetes who presents with dizziness and generalized weakness. Patient was found to have orthostatic hypotension. Patient was evaluated by neurology as well as cardiology. Patient was also placed on compression stockings, with improvement of his orthostatic vitals. Patient is now asymptomatic on ambulation. I did have an episode of nonsustained V. tach for which he is asymptomatic. She has been cleared by cardiology for discharge and will need to follow-up with Dr. Cannon outpt. Patient was also subtherapeutic with his INR, and his Coumadin has been increased. Patient will be given a prescription for INR check in 2 days with results to be sent to Dr. Cannon, determine which dose of Coumadin to continue. Return to the ED if symptoms recur. DISCHARGE MEDICATIONS: Please see below. ALLERGIES: Please see below. PHYSICAL EXAMINATION ON DISCHARGE: Vitals: (see below) General: No acute distress, laying comfortably in bed. HEENT: Moist mucous membranes. Neck: No JVD or lymphadenopathy Cardiac: RRR, No murmurs Pulm: Coarse crackles b/l bases. No wheezing, rhonchi Abd: NT/ND + BS Ext: No edema or cyanosis Neuro: Strength 5/5 BUE and BLE. CN 2-12 intact. LABORATORY DATA: Please see below. IMAGING: CT Head 08/04/16 Negative for acute pathology. PROGNOSIS: Fair ACTIVITY: As tolerated. DIET: Low-fat DISCHARGE PLAN/DISPOSITION: Discharge home DISCHARGE INSTRUCTIONS: 1. F/u with PCP and Dr. worthington 1-2 weeks. Prescription for INR/PT given to the patient was to be drawn on 08/10/16 with results to be sent to Dr. Cannon to determine any changes in the Coumadin will be made. Patient verbalizing understanding. DISCHARGE CONDITION: Stable. TIME SPENT ON DISCHARGE: Greater than 30 minutes. Vital Signs/I&Os Vital Signs Date Time Temp Pulse Resp B/P (MAP) Pulse Ox O2 Delivery O2 Flow Rate FiO2 08/08/16 08:35 73 08/08/16 08:35 97 Room Air 08/08/16 08:10 150/70 08/08/16 08:05 98.7 18 I&O- Last 24 Hours up to 6 AM 08/08/16 05:59 Intake Total 1140 ml Output Total 1375 ml Balance -235 ml Laboratory Data Labs 24H Laboratory Tests 2 08/07/16 16:48: Bedside Glucose (Misc Panel) 292H 08/07/16 20:52: Bedside Glucose (Misc Panel) 200H 08/08/16 04:44: Prothrombin Time 21.3H, Prothromb Time International Ratio 1.78, Anion Gap 6L, Glomerular Filtration Rate 58.2, Blood Urea Nitrogen 28H, Creatinine 1.28, Sodium Level 140, Potassium Level 3.9, Chloride Level 104, Carbon Dioxide Level 30, Calcium Level 8.5L, Aspartate Amino Transf (AST/SGOT) 17, Alanine Aminotransferase (ALT/SGPT) 33, Alkaline Phosphatase 58, Total Bilirubin 1.0, Total Protein 6.1L, Albumin 2.8L, Albumin/Globulin Ratio 0.85L CBC/BMP Laboratory Tests 08/08/16 04:44 Calcium Level 8.5 L, Aspartate Amino Transf (AST/SGOT) 17, Alanine Aminotransferase (ALT/SGPT) 33, Alkaline Phosphatase 58, Total Bilirubin 1.0, Total Protein 6.1 L, Albumin 2.8 L FSBS Laboratory Tests Test 08/07/16 16:48 08/07/16 20:52 Range/Units Bedside Glucose (Misc Panel) 292 200 83-110 MG/DL Microbiology Microbiology 08/05/16 Blood Culture - Preliminary, Resulted No Growth after 48 hours. All Specime... Discharge Medications Scheduled (Aspirin) 81 Mg Chw, 81 MG PO Q2D, (Reported) Atorvastatin Calcium (Lipitor) 20 Mg Tab, 20 MG PO QHS, (Reported) Brinzolamide (Azopt) 200 Drop/10 Ml Susp, 1 DROP OU TID, (Reported) Carvedilol (Carvedilol) 12.5 Mg Tab, 12.5 MG PO BID, (Reported) Carvedilol (Carvedilol) 6.25 Mg Tab, 6.25 MG PO BID Digoxin (Digoxin) 0.125 Mg Tab, 0.125 MG PO DAILY, (Reported) Ferrous Sulfate (Ferrous Sulfate) 325 Mg Tab, 325 MG PO DAILY, (Reported) Fish Oil (Fish Oil 1000 mg) 1 Cap Cap, 1 CAP PO DAILY, (Reported) Insulin Detemir (Levemir) 1 Units/0.01 Ml Susp, 20 UNITS SC DAILY, (Reported) TOOK ON 08/04 AT 2200 DUE TO ELEVATED BLOOD SUGAR. NORMALLY TAKES IN THE MORNING Insulin Human Lispro (Humalog) 1 Units/0.01 Ml Inj, UNITS SC ASDIRECTED, ( Reported) PER SLIDING SCALE Latanoprost (Xalatan) 0.005 % [place], 1 DROP OU QHS, (Reported) Paroxetine (Paroxetine HCl) 40 Mg Tab, 40 MG PO DAILY, (Reported) Prednisone (Prednisone) 10 Mg Tab, 10 MG PO TAPER, (Reported) 6 TABS BY MOUTH ONCE A DAY FOR 2 DAYS, 5 FOR 2 DAYS, 4 FOR 2 DAYS, 3 FOR 2 DAYS, 1 FOR 2 DAYS 08/05- DAY OF 40MG DOSE Warfarin Sod (Coumadin) 5 Mg Tab, 5 MG PO DAILY Scheduled PRN Albuterol Sulfate (Proair Hfa) 108 Mcg/Act Aer, 1 PUFF INH Q4H PRN for SHORTNESS OF BREATH, (Reported) Allergies Coded Allergies: No Known Allergies (Unverified , 08/04/16) BOGDAN LOPEZ MD Aug 08, 2016 12:36
[2016-08-08] MEDS ORDERED: WARFARIN SOD 7.5 MG TAB PO ONE (17:00)
== END 2016-08-08 13:10 | disposition home or self-care (01) ==
LOC: M ED 12:38 → M ED INP 17:46 → M PCU 20:04
PROVIDERS: ADMIT Hospitalist; ATTEND Internal Medicine
DX: I95.1 Orthostatic hypotension (principal); I48.91 Unspecified atrial fibrillation; Z79.01 Long term (current) use of anticoagulants; I25.10 Atherosclerotic heart disease of native coronary artery without angina pectoris; Z95.1 Presence of aortocoronary bypass graft; E11.9 Type 2 diabetes mellitus without complications; I10 Essential (primary) hypertension; F32.9 Major depressive disorder, single episode, unspecified; H40.9 Unspecified glaucoma; Z79.4 Long term (current) use of insulin; Z79.899 Other long term (current) drug therapy; I71.4 Abdominal aortic aneurysm, without rupture
CPT/HCPCS: 36415; 70544; 70551; 71010; 80048; 80053; 80162; 82330; 82533; 82550; 82553; 83519; 83605; 83735; 83874; 84100; 84436; 84443; 84479; 84484; 85025; 85610; 85652; 86140; 87040; 93005; 93041; 94640; 94760; 96360; 96372; 97161; 99285; G0378; J1650; J3475

== ENCOUNTER → 2016-08-10 | Outpatient (REF) | payer MEDICARE ==
[~2016-08-10] MED LIST changes: +BRIN1OPH OU; +CARV12.5 PO; +CARV6.25 PO; +COMB0.2S OU; +FERR325T3 PO; +FISH100049 PO; +INSUDET SC; +INSUHUMDS SC; +PRED10TA2 PO; +PROAAER10 INH
[2016-08-10 17:52] LABS: INR 3.2
== END ==
LOC: M LABDRAWC 16:32
PROVIDERS: ATTEND Internal Medicine Cardiovascular Disease
DX: I48.91 Unspecified atrial fibrillation (principal)

== ENCOUNTER → 2016-08-26 | Outpatient (REF) | payer MEDICARE ==
[2016-08-26 19:20] LABS: INR 3.14
== END ==
LOC: M LABDRAWC 16:23
PROVIDERS: ATTEND Internal Medicine Cardiovascular Disease
DX: I48.91 Unspecified atrial fibrillation (principal); Z51.81 Encounter for therapeutic drug level monitoring; Z79.01 Long term (current) use of anticoagulants
CPT/HCPCS: 36415; 85610; G0463

== ENCOUNTER → 2016-08-26 | Outpatient (REF) | payer MEDICARE | LOC: M SFHCCLAY 12:20 | PROVIDERS: ATTEND Family Medicine | DX: I48.91 Unspecified atrial fibrillation (principal); Z53.8 Procedure and treatment not carried out for other reasons ==

== ENCOUNTER → 2016-09-16 | Outpatient (REF) | payer MEDICARE ==
[2016-09-16 17:32] LABS: INR 2.39
== END ==
LOC: M LABDRAW1 16:23
PROVIDERS: ATTEND Internal Medicine Cardiovascular Disease
DX: Z51.81 Encounter for therapeutic drug level monitoring (principal); Z79.01 Long term (current) use of anticoagulants; I48.0 Paroxysmal atrial fibrillation

== ENCOUNTER → 2016-10-12 | Outpatient (REF) | payer MEDICARE ==
[2016-10-12 18:08] LABS: INR 3.05
== END ==
LOC: M LAB REF 14:00
PROVIDERS: ATTEND Internal Medicine Cardiovascular Disease
DX: I48.1 Persistent atrial fibrillation (principal)

== ENCOUNTER → 2016-11-16 | Outpatient (REF) | payer MEDICARE ==
[2016-11-16 18:39] LABS: INR 2.25
== END ==
LOC: M LABDRAWC 16:09
PROVIDERS: ATTEND Internal Medicine Cardiovascular Disease
DX: I48.91 Unspecified atrial fibrillation (principal)

== ENCOUNTER → 2017-07-04 | Outpatient (REF) | payer MEDICARE ==
[2017-07-05 12:51] LABS: INR 1.99; PROTHROMBIN TIME 23.3 SECONDS (12.4-14.5)
== END ==
LOC: M LAB REF 07-05 11:10
DX: Z79.01 Long term (current) use of anticoagulants (principal)
CPT/HCPCS: 85610

== ENCOUNTER → 2017-07-18 | Outpatient (REF) | payer MEDICARE ==
[2017-07-18 12:03] LABS: BASO # 0.1 10^3/uL (0.0-0.2); BASO % 0.9 % (0.0-1.0); EOS # 0.3 10^3/uL (0.0-0.50); HEMATOCRIT 37.3 % (42.0-52.0); HEMOGLOBIN 12.8 g/dl (13.5-17.5); IMMATURE GRANULOCYTE % 0.3 % (0-3.0); LYMPH # 1.1 10^3/uL (1.5-4.5); LYMPH % 15.1 % (24.0-44.0); MEAN CORPUSCULAR HEMOGLOBIN 32.2 pg (27.0-33.0); MEAN CORPUSCULAR HGB CONC 34.3 g/dl (32.0-36.5); MONO # 0.6 10^3/uL (0.0-0.8); MONO % 7.7 % (0.0-5.0); NEUTROPHILS # 5.4 10^3/uL (1.8-7.7); PLATELET COUNT, AUTOMATED 124 10^3/uL (150-450); RED BLOOD COUNT 3.97 10^6/uL (4.30-6.10); RED CELL DISTRIBUTION WIDTH 13.6 % (11.5-14.5); WHITE BLOOD COUNT 7.5 10^3/uL (4.0-10.0)
[2017-07-18 12:22] LABS: ESTIMATED AVERAGE GLUCOSE 226 MG/DL (60-110); HEMOGLOBIN A1c 9.5 %
[2017-07-18 12:26] LABS: ALBUMIN 3.6 GM/DL (3.2-5.2); ALBUMIN/GLOBULIN RATIO 1.03 (1.00-1.93); ALKALINE PHOSPHATASE 63 U/L (45-117); ALT/SGPT 29 U/L (12-78); ANION GAP 8 MEQ/L (8-16); AST/SGOT 17 U/L (7-37); BILIRUBIN,TOTAL 1.1 MG/DL (0.2-1.0); BLOOD UREA NITROGEN 28 MG/DL (7-18); CALCIUM LEVEL 8.5 MG/DL (8.8-10.2); CARBON DIOXIDE LEVEL 28 MEQ/L (21-32); CHLORIDE LEVEL 102 MEQ/L (98-107); CHOLESTEROL LEVEL 75 MG/DL (<200); CREATININE FOR GFR 1.47 MG/DL (0.70-1.30); GLOMERULAR FILTRATION RATE 49.5 (>42); GLUCOSE, FASTING 277 MG/DL (70-100); HDL CHOLESTEROL 20 MG/DL (>40); IRON (FE) 73 UG/DL (65-175); LDL CHOLESTEROL -14.6 MG/DL (<100); NON-HDL-C 55 MG/DL; POTASSIUM SERUM 4.5 MEQ/L (3.5-5.1); SODIUM LEVEL 138 MEQ/L (136-145); TOTAL PROTEIN 7.1 GM/DL (6.4-8.2); TRIGLYCERIDES LEVEL 348 MG/DL (<150); VITAMIN B12 LEVEL 457 PG/ML (247-911)
[2017-07-18 12:27] LABS: FOLATE 22.3 NG/ML (>5.4)
[2017-07-18 12:35] LABS: MALB URINE SIEMENS 14.9 MG/L; MAU/CREAT RATIO 8.8 MCG/MG (0.0-30.0)
== END ==
LOC: M SFHCCLAY 08:54
DX: E11.9 Type 2 diabetes mellitus without complications (principal); D64.9 Anemia, unspecified
CPT/HCPCS: 82746

== ENCOUNTER → 2017-08-07 | Outpatient (REF) | payer MEDICARE ==
[2017-08-07 17:21] LABS: INR 2.86; PROTHROMBIN TIME 30.6 SECONDS (12.1-14.4)
== END ==
LOC: M LABDRAWC 16:23
DX: Z79.01 Long term (current) use of anticoagulants (principal)
CPT/HCPCS: 85610

== ENCOUNTER → 2017-09-21 | Outpatient (REF) | payer MEDICARE ==
[2017-09-22 11:26] LABS: INR 1.76; PROTHROMBIN TIME 20.9 SECONDS (12.1-14.4)
== END ==
LOC: M LABDRAWC 09-22 10:57
DX: Z51.81 Encounter for therapeutic drug level monitoring (principal); Z79.01 Long term (current) use of anticoagulants
CPT/HCPCS: 85610